=== PATIENT | male | born 1985 | race Caucasian/White ===

== ENCOUNTER 2017-03-29 19:59 | Emergency (ER) | payer BC ==
--- NOTE | 2017-03-29 20:36 | EDM.PDOC ---
ED HPI Trauma - General Chief Complaint: Lower Extremity Injury/Pain Stated Complaint: PAIN LT HAMSTRING Time Seen by Provider: 03/29/17 20:35 Source: Reports: Patient History Limitations: Reports: No limitations - History of Present Illness INITIAL COMMENTS - FREE TEXT/NARRATIVE: HISTORY AND PHYSICAL: [31-year-old male presents with hamstring injury. Patient hit the ball and was running towards first when he heard a loud pop and pain instantly to the back of his left thigh.]his ex- drove him to the emergency room History of Present Illness: [patient has history of hamstring injury to right leg one year ago. multiple tattoos/rings in the earlobes ] Review of Systems: As per history of present illness and below otherwise all systems reviewed and negative. Past medical history: As per history of present illness and as reviewed below otherwise noncontributory. Surgical history: As per history of present illness and as reviewed below otherwise noncontributory. Social history: No reported history of drug or alcohol abuse. Family history: As per history of present illness and as reviewed below otherwise noncontributory. Physical exam:alert and oriented gentleman answering questions appropriate holding ice to the back of his left thigh HEENT: Atraumatic, normocehpalic, pupils reactive, negative for conjunctival pallor or scleral icterus, mucous membranes moist, throat clear, neck supple, nontender, trachea midline. Lungs: Clear to auscultation, breath sounds equal bilaterally, chest non tender. Heart: S1S2, regular, negative for clicks, rubs, or JVD. Abdomen: Soft, nondistended, nontender. Negative for masses or hepatossplenmegaly. Negative for costovertebral tenderness. Pelvis: Stable nontender. with palpation Genitourinary: Deferred. Rectal: Deferred Extremities: Atraumatic, negative for cords or calf pain. Ice pack present to posterior femur Neurovascular unremarkable. Neuro: Awake, alert, oriented. Cranial nerves II through XII unremarkable. Cerebellum unremarkable. Motor and sensory unremarkable throughout. Exam nonfocal. as the patient the x-rays were negative for any fracture or dislocation. Discussed care of his hamstring injury. He did voice understanding of all discharge instructions. No further questions were outstanding. Diagnostics: [x-ray left femur] Therapeutics: [Toradol 60 IM] Impression: [hamstring injury] Plan: [ice Avoid straightening the leg Use a knee scooter for the next month Ibuprofen 800 3 times a day or Aleve 2 tabs twice a day Hydrocodone/APAP 10/325mg one 3 times a day when necessary pain if not driving.] followup with the primary care provider Return if symptoms worsen Definitive disposition and diagnosis as appropriate pending reevaluation and review of above. Occurred When: just prior to arrival Occurred Where: other (playing baseball running to first) Method of Injury: other Severity: severe Pain/Injury Location: Reports: lower extremity, left Consciousness: Reports: no loss of consciousness, remembers incident, remembers coming to hosp Associated Symptoms: Reports: muscle spasms Allergies/ADRs: Allergies No Known Allergies Allergy (Verified 03/29/17 20:12) Home Medications: Ambulatory Orders . [No Known Home Meds] 03/29/17 [Confirmed 03/29/17] Past Medical History - Past Health History Medical/Surgical History: Denies Medical/Surgical History HEENT History: Reports: None Cardiovascular History: Reports: None Respiratory History: Reports: None Gastrointestinal History: Reports: None Genitourinary History: Reports: None Musculoskeletal History: Reports: None Neurological History: Reports: None Psychiatric History: Reports: None Endocrine/Metabolic History: Reports: None Hematologic History: Reports: None Immunologic History: Reports: None Oncologic (Cancer) History: Reports: None Dermatologic History: Reports: None - Infectious Disease History Infectious Disease History: Reports: None - Past Surgical History Head Surgeries/Procedures: Reports: None GI Surgical History: Reports: Other (see below) Other GI Surgeries/Procedures: abdominal cyst removed Social & Family History - Family History Family Medical History: Noncontributory - Tobacco Use Smoking Status *Q: Former Smoker Used Tobacco, but Quit: Yes Month Tobacco Last Used: 2009 - Caffeine Use Caffeine Use: Reports: Coffee Caffeine Use Comment: 1/day - Recreational Drug Use Recreational Drug Use: Yes Drug Use in Last 12 Months: Yes Recreational Drug Type: Reports: Marijuana/Hashish Recreational Drug Use Frequency: Not Used In Over 6 Months Review of Systems - Review of Systems Review Of Systems: ROS reveals no pertinent complaints other than HPI. Trauma Exam - Physical Exam Exam: See Below (see dictation) Course - Vital Signs Last Recorded V/S: Last Vital Signs Temp 36.9 C 03/29/17 20:12 Pulse 90 03/29/17 20:12 Resp 18 03/29/17 20:12 BP 143/75 H 03/29/17 20:12 Pulse Ox 97 03/29/17 20:12 - Orders/Labs/Meds Orders: Active Orders 24 hr Category Date Time Status Femur Min 2V Lt [CR] Stat Exams 03/29/17 20:34 Taken Meds: Medications Discontinued Medications Generic Name Dose Route Start Last Admin Trade Name Ella PRN Reason Stop Dose Admin Hydrocodone Bitart/Acetaminophen 1 tab 03/29/17 21:33 03/29/17 21:40 [place]nell 325-10 Mg PO 03/29/17 21:34 1 tab ONETIME ONE Administration Ketorolac Tromethamine 60 mg 03/29/17 20:39 03/29/17 20:44 Toradol IM 03/29/17 20:40 60 mg ONETIME ONE Administration Departure - Departure Time of Disposition: 21:45 Disposition: Home, Self-Care 01 Condition: good Clinical Impression: Hamstring sprain Forms: ED Department Discharge Additional Instructions: The following information is given to patients seen in the emergency department who are being discharged to home. This information is to outline your options for follow-up care. We provide all patients seen in our emergency department with a follow-up referral. The need for follow-up, as well as the timing and circumstances, are variable depending upon the specifics of your emergency department visit. If you don't have a primary care physician on staff, we will provide you with a referral. We always advise you to contact your personal physician following an emergency department visit to inform them of the circumstance of the visit and for follow-up with them and/or the need for any referrals to a consulting specialist. The emergency department will also refer you to a specialist when appropriate. This referral assures that you have the opportunity for followup care with a specialist. All of these measure are taken in an effort to provide you with optimal care, which includes your followup. Under all circumstances we always encourage you to contact your private physician who remains a resource for coordinating your care. When calling for followup care, please make the office aware that this follow-up is from your recent emergency room visit. If for any reason you are refused follow-up, please contact the [facility] emergency department at and asked to speak to the emergency department charge nurse. - My Orders Last 24 Hours: My Active Orders 03/29/17 20:34 Femur Min 2V Lt [CR] Stat - Assessment/Plan Last 24 Hours: My Active Orders 03/29/17 20:34 Femur Min 2V Lt [CR] Stat
[2017-03-29] MEDS ORDERED: Ketorolac 60 MG/2 ML SDV IM ONE (20:39)
[2017-03-29] MEDS ORDERED: Acetaminophen/HYDROcodone 325-10 MG Tab PO ONE (21:33)
[2017-03-29 21:57] VITALS: BP 127/58
--- NOTE | 2017-03-30 12:37 | CR ---
.EXAM DATE: 03/29/17 PATIENT'S AGE: 31 Patient: ROB SOLIS Facility: [place], [place] Site . Site : 1985 Study: XRay Extremity femur [id number]/[id number] 9:34:22 PM Ordering Physician: Doctor Owusu Final Report: Indication: Pain and posterior legs, unable to straighten leg Technique: Frontal and lateral views left femur Comparison: None Findings: Bones: Alignment is normal. No fractures or bone lesions. Joint spaces: Unremarkable. Soft tissues: Unremarkable. Impression: Negative. Dictated by Adrianne Morgan MD @ Mar 29 2017 9:45PM (Electronic Signature) Report Signed by Proxy. DION
== END 2017-03-29 21:48 | disposition home or self-care (01) ==
LOC: MW.ED 19:59
DX: S73.199A Other sprain of unspecified hip, initial encounter (principal); Z87.891 Personal history of nicotine dependence; W21.09XA Struck by other hit or thrown ball, initial encounter
CPT/HCPCS: 73552; 96372; 99283; A9270; J1885

== ENCOUNTER 2018-02-15 11:29 | Observation (INO) | payer BC ==
[2018-02-15] MEDS ORDERED: Albuterol/Ipratropium 3.0-0.5 MG/3 ML Neb Soln NEB ONE (12:09)
[2018-02-15] MEDS ORDERED: Sodium Chloride 0.9% 1,000 ML IV ONE (12:09)
[2018-02-15] MEDS ORDERED: Sodium Chloride 0.9% 10 ML Syringe FLUSH PRN (12:10)
[2018-02-15] MEDS ORDERED: Sodium Chloride 0.9% 2.5 ML Syringe FLUSH PRN (12:10)
--- NOTE | 2018-02-15 12:12 | EDM.PDOC ---
ED HPI GENERAL MEDICAL PROBLEM - General Chief Complaint: Respiratory Problem Stated Complaint: SOB Time Seen by Provider: 02/15/18 12:06 - History of Present Illness INITIAL COMMENTS - FREE TEXT/NARRATIVE: HISTORY AND PHYSICAL: History of present illness: Patient 32-year-old white male sensory concern shortness of breath he states this is exertionally denies fever chills nausea vomiting he was seen several weeks prior and put on Augmentin and Medrol Dosepak states he had some improvement. He denies history of reactive airway disease asthma he is nonsmoker. Review of systems: As per history of present illness and below otherwise all systems reviewed and negative. Past medical history: As per history of present illness and as reviewed below otherwise noncontributory. Surgical history: As per history of present illness and as reviewed below otherwise noncontributory. Social history: No reported history of drug or alcohol abuse. Family history: As per history of present illness and as reviewed below otherwise noncontributory. Physical exam: HEENT: Atraumatic, normocephalic, pupils reactive, negative for conjunctival pallor or scleral icterus, mucous membranes moist, throat clear, neck supple, nontender, trachea midline. Lungs: Slightly coarse bilateral, breath sounds equal bilaterally, chest nontender. Heart: S1S2, regular, negative for clicks, rubs, or JVD. Abdomen: Soft, nondistended, nontender. Negative for masses or hepatosplenomegaly. Negative for costovertebral tenderness. Pelvis: Stable nontender. Genitourinary: Deferred. Rectal: Deferred. Extremities: Atraumatic, negative for cords or calf pain. Neurovascular unremarkable. Neuro: Awake, alert, oriented. Cranial nerves II through XII unremarkable. Cerebellum unremarkable. Motor and sensory unremarkable throughout. Exam nonfocal. Diagnostics: CBC CMP BNP d-dimer chest x-ray EKG influenza screen Therapeutics: #1 saline bolus albuterol ipratropium nebulizer Impression: #1 dyspnea Definitive disposition and diagnosis as appropriate pending reevaluation and review of above. Chest Pain Score (Numeric/FACES): 8 - Related Data Allergies Allergy/AdvReac Type Severity Reaction Status Date / Time No Known Allergies Allergy Verified 02/15/18 11:43 Home Meds: Home Meds . [No Known Home Meds] 03/29/17 [History] Past Medical History - Past Health History Medical/Surgical History: Denies Medical/Surgical History HEENT History: Reports: None Cardiovascular History: Reports: None Respiratory History: Reports: None Gastrointestinal History: Reports: None Genitourinary History: Reports: None Musculoskeletal History: Reports: None Neurological History: Reports: None Psychiatric History: Reports: None Endocrine/Metabolic History: Reports: None Hematologic History: Reports: None Immunologic History: Reports: None Oncologic (Cancer) History: Reports: None Dermatologic History: Reports: None - Infectious Disease History Infectious Disease History: Reports: Chicken Pox - Past Surgical History Head Surgeries/Procedures: Reports: None GI Surgical History: Reports: Other (See Below) Social & Family History - Family History Family Medical History: Noncontributory - Tobacco Use Smoking Status *Q: Never Smoker Used Tobacco, but Quit: Yes Month/Year Tobacco Last Used: 2009 - Caffeine Use Caffeine Use: Reports: Coffee Caffeine Use Comment: 1/day - Recreational Drug Use Recreational Drug Use: No Drug Use in Last 12 Months: Yes Recreational Drug Type: Reports: Marijuana/Hashish Recreational Drug Use Frequency: Not Used In Over 6 Months ED ROS GENERAL - Review of Systems Review Of Systems: ROS reveals no pertinent complaints other than HPI. ED EXAM, GENERAL - Physical Exam Exam: See Below (See dictation) Course - Vital Signs Last Recorded V/S: Last Vital Signs Temp 36.6 C 02/15/18 11:40 Pulse 81 02/15/18 13:48 Resp 18 02/15/18 13:48 BP 129/57 L 02/15/18 13:48 Pulse Ox 93 L 02/15/18 13:48 - Orders/Labs/Meds Orders: Active Orders 24 hr Category Date Time Status EKG Documentation Completion [RC] STAT Care 02/15/18 12:09 Active RT Aerosol Therapy [RC] ASDIRECTED Care 02/15/18 12:10 Active CULTURE BLOOD [BC] Stat Lab 02/15/18 14:00 Ordered CULTURE BLOOD [BC] Stat Lab 02/15/18 14:00 Ordered INFLUENZA A+B AG SCREEN [RM] Stat Lab 02/15/18 12:30 Ordered Azithromycin [Zithromax] 500 mg Med 02/15/18 13:59 Active Sodium Chloride 0.9% [Normal Saline] 250 ml IV ONETIME Sodium Chloride 0.9% [Saline Flush] Med 02/15/18 12:10 Active 10 ml FLUSH ASDIRECTED PRN Sodium Chloride 0.9% [Saline Flush] Med 02/15/18 12:10 Active 2.5 ml FLUSH ASDIRECTED PRN cefTRIAXone [Rocephin] 1,000 mg Med 02/15/18 13:59 Active Sodium Chloride 0.9% [Normal Saline] 50 ml IV ONETIME Blood Culture x2 Reflex Set [OM.PC] Stat Oth 02/15/18 14:00 Ordered Saline Lock Insert [OM.PC] Stat Oth 02/15/18 12:08 Ordered Medication Orders Ceftriaxone Sodium 1,000 mg/ (Sodium Chloride) 50 mls @ 200 mls/hr IV ONETIME ONE Stop: 02/15/18 14:13 Azithromycin 500 mg/ Sodium (Chloride) 250 mls @ 250 mls/hr IV ONETIME ONE Stop: 02/15/18 14:58 Sodium Chloride (Saline Flush) 10 ml FLUSH ASDIRECTED PRN PRN Reason: Keep Vein Open Sodium Chloride (Saline Flush) 2.5 ml FLUSH ASDIRECTED PRN PRN Reason: Keep Vein Open Labs: Laboratory Tests 02/15/18 02/15/18 02/15/18 Range/Units 12:20 12:20 12:20 WBC 16.89 H (4.0-11.0) K/uL RBC 5.46 (4.50-5.90) M/uL Hgb 17.2 H (13.0-17.0) g/dL Hct 49.3 (38.0-50.0) % MCV 90.3 (80.0-98.0) fL MCH 31.5 (27.0-32.0) pg MCHC 34.9 (31.0-37.0) g/dL RDW Std Deviation 49.0 (28.0-62.0) fl RDW Coeff of Katerine 15 (11.0-15.0) % Plt Count 375 (150-400) K/uL MPV 10.90 (7.40-12.00) fL Neut % (Auto) 72.2 (48.0-80.0) % Lymph % (Auto) 19.8 (16.0-40.0) % [place] % (Auto) 7.5 (0.0-15.0) % Eos % (Auto) 0.2 (0.0-7.0) % Baso % (Auto) 0.3 (0.0-1.5) % Neut # (Auto) 12.2 H (1.4-5.7) K/uL Lymph # (Auto) 3.4 H (0.6-2.4) K/uL [place] # (Auto) 1.3 H (0.0-0.8) K/uL Eos # (Auto) 0.0 (0.0-0.7) K/uL Baso # (Auto) 0.1 (0.0-0.1) K/uL Nucleated RBC % 0.6 /100WBC Nucleated RBCs # 0 K/uL D-Dimer, Quantitative 0.64 H (0.0-0.52) mg/LFEU ABG pH (7.35-7.45) ABG pCO2 (35-45) mmHG ABG pO2 (75-100) mmHG ABG HCO3 (22-26) mEq/L ABG Total CO2 ABG Base Excess (-2.0-2.0) Sodium 137 (136-148) mmol/L Potassium 4.8 (3.5-5.1) mmol/L Chloride 102 (98-107) mmol/L Carbon Dioxide 26.2 (21.0-32.0) mmol/L BUN 18 (7.0-18.0) mg/dL Creatinine 1.5 H (0.8-1.3) mg/dL Est Cr Clr Drug Dosing 74.35 mL/min Estimated GFR (MDRD) 55.0 ml/min Glucose 92 (74-106) mg/dL Calcium 8.9 (8.5-10.1) mg/dL Total Bilirubin 0.6 (0.2-1.0) mg/dL AST 47 H (15-37) IU/L ALT 148 H (14-63) IU/L Alkaline Phosphatase 46 (46-116) U/L B-Natriuretic Peptide (<100) PG/ML Total Protein 7.6 (6.4-8.2) g/dL Albumin 3.0 L (3.4-5.0) g/dL Globulin 4.6 H (2.0-3.5) g/dL Albumin/Globulin Ratio 0.7 L (1.3-2.8) 02/15/18 02/15/18 Range/Units 12:20 12:29 WBC (4.0-11.0) K/uL RBC (4.50-5.90) M/uL Hgb (13.0-17.0) g/dL Hct (38.0-50.0) % MCV (80.0-98.0) fL MCH (27.0-32.0) pg MCHC (31.0-37.0) g/dL RDW Std Deviation (28.0-62.0) fl RDW Coeff of Katerine (11.0-15.0) % Plt Count (150-400) K/uL MPV (7.40-12.00) fL Neut % (Auto) (48.0-80.0) % Lymph % (Auto) (16.0-40.0) % [place] % (Auto) (0.0-15.0) % Eos % (Auto) (0.0-7.0) % Baso % (Auto) (0.0-1.5) % Neut # (Auto) (1.4-5.7) K/uL Lymph # (Auto) (0.6-2.4) K/uL [place] # (Auto) (0.0-0.8) K/uL Eos # (Auto) (0.0-0.7) K/uL Baso # (Auto) (0.0-0.1) K/uL Nucleated RBC % /100WBC Nucleated RBCs # K/uL D-Dimer, Quantitative (0.0-0.52) mg/LFEU ABG pH 7.470 H (7.35-7.45) ABG pCO2 29 L (35-45) mmHG ABG pO2 63 L (75-100) mmHG ABG HCO3 21 L (22-26) mEq/L ABG Total CO2 18.0 ABG Base Excess -1.0 (-2.0-2.0) Sodium (136-148) mmol/L Potassium (3.5-5.1) mmol/L Chloride (98-107) mmol/L Carbon Dioxide (21.0-32.0) mmol/L BUN (7.0-18.0) mg/dL Creatinine (0.8-1.3) mg/dL Est Cr Clr Drug Dosing mL/min Estimated GFR (MDRD) ml/min Glucose (74-106) mg/dL Calcium (8.5-10.1) mg/dL Total Bilirubin (0.2-1.0) mg/dL AST (15-37) IU/L ALT (14-63) IU/L Alkaline Phosphatase (46-116) U/L B-Natriuretic Peptide 21 (<100) PG/ML Total Protein (6.4-8.2) g/dL Albumin (3.4-5.0) g/dL Globulin (2.0-3.5) g/dL Albumin/Globulin Ratio (1.3-2.8) Meds: Medications Generic Name Dose Route Start Last Admin Trade Name Freq PRN Reason Stop Dose Admin Ceftriaxone Sodium 1,000 mg/ 50 mls @ 200 mls/hr 02/15/18 13:59 Sodium Chloride IV 02/15/18 14:13 ONETIME ONE Azithromycin 500 mg/ Sodium 250 mls @ 250 mls/hr 02/15/18 13:59 Chloride IV 02/15/18 14:58 ONETIME ONE Sodium Chloride 10 ml 02/15/18 12:10 Saline Flush FLUSH ASDIRECTED PRN Keep Vein Open Sodium Chloride 2.5 ml 02/15/18 12:10 Saline Flush FLUSH ASDIRECTED PRN Keep Vein Open Discontinued Medications Generic Name Dose Route Start Last Admin Trade Name Freq PRN Reason Stop Dose Admin Albuterol/Ipratropium 3 ml 02/15/18 12:09 02/15/18 12:18 Duoneb 3.0-0.5 Mg/3 Ml NEB 02/15/18 12:10 3 ml ONETIME ONE Administration Sodium Chloride 1,000 mls @ 999 mls/hr 02/15/18 12:09 02/15/18 12:23 Normal Saline IV 02/15/18 13:09 999 mls/hr STAT ONE Administration Departure - Departure Time of Disposition: 14:01 Disposition: Refer to Observation Condition: Good Clinical Impression: Pneumonia, Hypoxemia - Discharge Information Referrals: Kelby Del Valle MD [Primary Care Provider] - Forms: ED Department Discharge - My Orders Last 24 Hours: My Active Orders 02/15/18 12:08 Saline Lock Insert [OM.PC] Stat 02/15/18 12:09 EKG Documentation Completion [RC] STAT 02/15/18 12:10 RT Aerosol Therapy [RC] ASDIRECTED Sodium Chloride 0.9% [Saline Flush] 10 ml FLUSH ASDIRECTED PRN Sodium Chloride 0.9% [Saline Flush] 2.5 ml FLUSH ASDIRECTED PRN 02/15/18 12:30 INFLUENZA A+B AG SCREEN [RM] Stat 02/15/18 13:59 Azithromycin [Zithromax] 500 mg Sodium Chloride 0.9% [Normal Saline] 250 ml IV ONETIME cefTRIAXone [Rocephin] 1,000 mg Sodium Chloride 0.9% [Normal Saline] 50 ml IV ONETIME 02/15/18 14:00 CULTURE BLOOD [BC] Stat CULTURE BLOOD [BC] Stat Blood Culture x2 Reflex Set [OM.PC] Stat - Assessment/Plan Last 24 Hours: My Active Orders 02/15/18 12:08 Saline Lock Insert [OM.PC] Stat 02/15/18 12:09 EKG Documentation Completion [RC] STAT 02/15/18 12:10 RT Aerosol Therapy [RC] ASDIRECTED Sodium Chloride 0.9% [Saline Flush] 10 ml FLUSH ASDIRECTED PRN Sodium Chloride 0.9% [Saline Flush] 2.5 ml FLUSH ASDIRECTED PRN 02/15/18 12:30 INFLUENZA A+B AG SCREEN [RM] Stat 02/15/18 13:59 Azithromycin [Zithromax] 500 mg Sodium Chloride 0.9% [Normal Saline] 250 ml IV ONETIME cefTRIAXone [Rocephin] 1,000 mg Sodium Chloride 0.9% [Normal Saline] 50 ml IV ONETIME 02/15/18 14:00 CULTURE BLOOD [BC] Stat CULTURE BLOOD [BC] Stat Blood Culture x2 Reflex Set [OM.PC] Stat
--- NOTE | 2018-02-15 13:55 | CR ---
EXAMINATION: Two-view chest (PA and Lateral views). HISTORY: Shortness of breath. FINDINGS: The trachea is midline. The cardiomediastinal silhouette is within normal limits. Infiltrate noted wi thin the lung bases, left greater than right. No pleural effusion or pneumothorax. Osseous structures appear unremarkable. IMPRESSION: Bibasilar, left greater than right infiltrate, likely pneumonia.
[2018-02-15] MEDS ORDERED: cefTRIAXone 1,000 MG in Sodium Chloride 0.9% 50 ML IV ONE (13:59)
[2018-02-15] MEDS ORDERED: Azithromycin 500 MG in Sodium Chloride 0.9% 250 ML IV ONE ×2 (13:59→15:00)
[2018-02-15] MEDS ORDERED: Ondansetron 4 MG/2 ML SDV IVPUSH PRN (14:35)
[2018-02-15] MEDS ORDERED: Albuterol 0.083% 2.5 MG/3 ML Neb Soln NEB PRN (14:35)
[2018-02-15] MEDS ORDERED: Albuterol/Ipratropium 3.0-0.5 MG/3 ML Neb Soln NEB PRN (14:35)
[2018-02-15] MEDS ORDERED: Acetaminophen 325 MG Tab PO PRN (14:35)
--- NOTE | 2018-02-15 14:47 | PCM.HP ---
H&P History of Present Illness - General Date of Service: 02/15/18 Admit Problem/Dx: Admission Diagnosis/Problem Admission Diagnosis/Problem Pneumonia Source of Information: Patient History Limitations: Reports: No Limitations - History of Present Illness Initial Comments - Free Text/Narative: This 32 year old male with no pmh presented to the ED today with worsening dyspnea and fever and chills. He reports he initially was sick with a cold and had some ear pain, saw Dr Del Valle a week ago and was placed on Augmentin and a Medrol dose pack. He improved slightly, but the shortness of breath progressively worsened to the point he was extremely short of breath just taking the garbage out. He reports having hot flashes and chills, temp measured at 100 F at home nothing higher. He has been coughing up green, brown and yellow phlegm. He has had a very poor appetite and drinking very little compared to his normal water intake. No chest pain or palpitations. No abdominal pain or urinary symptoms. He reports some diarrhea before starting Augmentin even, 5-6 times daily. No black or bloody BMs. No joint pain. No headache or blurred vision, no more body aches, he had them last week and no joint or neck pain. In the ED leukocytosis noted at 16,890, hgb 17.2, D dimer elevated slightly at 0.64, ABG, pH 7.470 PCO2 29, PO2 63. BUN 18, Cr 1.5 AST 47, and ALT 148. CXR revealed bilateral L greater than R infiltrates. Influenza negative. He was treated with Rocephin, Azithromycin, Duonebs and 1 L NS bolus. VS stable, 94% on RA but noted dyspnea. PCP, Dr Del Valle. Chest Pain Score (Numeric/FACES): 2 - Related Data Allergies/Adverse Reactions: Allergies Allergy/AdvReac Type Severity Reaction Status Date / Time No Known Allergies Allergy Verified 02/15/18 11:43 Home Medications: Home Meds . [No Known Home Meds] 03/29/17 [History] Past Medical History - Past Health History Medical/Surgical History: Denies Medical/Surgical History HEENT History: Reports: None Cardiovascular History: Reports: None. Denies: CAD, High Cholesterol, Hypertension, CT Respiratory History: Reports: None. Denies: Asthma, COPD, Sleep Apnea Gastrointestinal History: Reports: None. Denies: GERD, GI Bleed Genitourinary History: Reports: None. Denies: Acute Renal Failure, Chronic Renal Insuffiency Musculoskeletal History: Reports: None. Denies: Fracture Neurological History: Reports: None. Denies: CVA, Migraines, TIA Psychiatric History: Reports: None Endocrine/Metabolic History: Reports: None. Denies: Diabetes, Type II, Hypothyroidism Hematologic History: Reports: None Immunologic History: Reports: None Oncologic (Cancer) History: Reports: None Dermatologic History: Reports: None - Infectious Disease History Infectious Disease History: Reports: Chicken Pox - Past Surgical History Head Surgeries/Procedures: Reports: None GI Surgical History: Reports: Other (See Below) Social & Family History - Family History Family Medical History: Noncontributory - Tobacco Use Smoking Status *Q: Former Smoker Used Tobacco, but Quit: Yes Month/Year Tobacco Last Used: 2009 - Caffeine Use Caffeine Use: Reports: Coffee Caffeine Use Comment: 1/day - Alcohol Use Alcohol Use History: No - Recreational Drug Use Recreational Drug Use: No Drug Use in Last 12 Months: Yes Recreational Drug Type: Reports: Marijuana/Hashish Recreational Drug Use Frequency: Not Used In Over 6 Months - Living Situation & Occupation Living situation: Reports: , with Family 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 Denies: Headaches, Hearing Changes, Sinus Congestion, Sore Throat, Vertigo, Visual Changes Pulmonary: Reports: Shortness of Breath, Cough, Sputum. Denies: Hemoptysis Cardiovascular: Reports: No Symptoms. Denies: Chest Pain, Palpitations, Edema, Lightheadedness Gastrointestinal: Reports: Diarrhea. Denies: Abdominal Pain, Black Stool, Bloody Stool, Nausea, Vomiting Genitourinary: Reports: No Symptoms. Denies: Dysuria, Frequency, Burning, Pain Musculoskeletal: Reports: No Symptoms Skin: Reports: No Symptoms Neurological: Reports: No Symptoms Hematologic/Lymphatic: Reports: No Symptoms Immunologic: Reports: No Symptoms Exam - Exam Exam: See Below - Vital Signs Vital Signs: Last Vital Signs Temp 97.9 F 02/15/18 11:40 Pulse 85 02/15/18 14:36 Resp 16 02/15/18 14:36 BP 115/51 L 02/15/18 14:36 Pulse Ox 94 L 02/15/18 14:36 Weight: 105 kg - Exam Quality Assessment: DVT Prophylaxis General: Alert, Oriented, Cooperative HEENT: Conjunctiva Clear, Mucosa Moist & [place], Nares Patent, Posterior Pharynx Clear, Pupils Reactive Neck: Supple, Trachea Midline, 2 Lungs: Crackles (bilateral bases). No: Normal Respiratory Effort (dyspneic with speech and exertion) Cardiovascular: Regular Rate, Regular Rhythm Back Exam: Normal Inspection, Full Range of Motion, NT Extremities: Normal Inspection, Normal Range of Motion, Non-Tender, No Pedal Edema, Normal Capillary Refill Skin: Warm, Dry, Intact Neuro Extensive - Mental Status: Alert, Oriented x3, Normal Mood/Affect, Normal Cognition Neuro Extensive - Motor, Sensory, Reflexes: CN II-XII Intact Psychiatric: Alert, Normal Affect, Normal Mood - Patient Data Lab Results Last 24 hrs: Laboratory Results - last 24 hr 02/15/18 02/15/18 02/15/18 Range/Units 12:20 12:20 12:20 WBC 16.89 H (4.0-11.0) K/uL RBC 5.46 (4.50-5.90) M/uL Hgb 17.2 H (13.0-17.0) g/dL Hct 49.3 (38.0-50.0) % MCV 90.3 (80.0-98.0) fL MCH 31.5 (27.0-32.0) pg MCHC 34.9 (31.0-37.0) g/dL RDW Std Deviation 49.0 (28.0-62.0) fl RDW Coeff of Katerine 15 (11.0-15.0) % Plt Count 375 (150-400) K/uL MPV 10.90 (7.40-12.00) fL Neut % (Auto) 72.2 (48.0-80.0) % Lymph % (Auto) 19.8 (16.0-40.0) % [place] % (Auto) 7.5 (0.0-15.0) % Eos % (Auto) 0.2 (0.0-7.0) % Baso % (Auto) 0.3 (0.0-1.5) % Neut # (Auto) 12.2 H (1.4-5.7) K/uL Lymph # (Auto) 3.4 H (0.6-2.4) K/uL [place] # (Auto) 1.3 H (0.0-0.8) K/uL Eos # (Auto) 0.0 (0.0-0.7) K/uL Baso # (Auto) 0.1 (0.0-0.1) K/uL Nucleated RBC % 0.6 /100WBC Nucleated RBCs # 0 K/uL D-Dimer, Quantitative 0.64 H (0.0-0.52) mg/LFEU ABG pH (7.35-7.45) ABG pCO2 (35-45) mmHG ABG pO2 (75-100) mmHG ABG HCO3 (22-26) mEq/L ABG Total CO2 ABG Base Excess (-2.0-2.0) Sodium 137 (136-148) mmol/L Potassium 4.8 (3.5-5.1) mmol/L Chloride 102 (98-107) mmol/L Carbon Dioxide 26.2 (21.0-32.0) mmol/L BUN 18 (7.0-18.0) mg/dL Creatinine 1.5 H (0.8-1.3) mg/dL Est Cr Clr Drug Dosing 74.35 mL/min Estimated GFR (MDRD) 55.0 ml/min Glucose 92 (74-106) mg/dL Calcium 8.9 (8.5-10.1) mg/dL Total Bilirubin 0.6 (0.2-1.0) mg/dL AST 47 H (15-37) IU/L ALT 148 H (14-63) IU/L Alkaline Phosphatase 46 (46-116) U/L B-Natriuretic Peptide (<100) PG/ML Total Protein 7.6 (6.4-8.2) g/dL Albumin 3.0 L (3.4-5.0) g/dL Globulin 4.6 H (2.0-3.5) g/dL Albumin/Globulin Ratio 0.7 L (1.3-2.8) 02/15/18 02/15/18 Range/Units 12:20 12:29 WBC (4.0-11.0) K/uL RBC (4.50-5.90) M/uL Hgb (13.0-17.0) g/dL Hct (38.0-50.0) % MCV (80.0-98.0) fL MCH (27.0-32.0) pg MCHC (31.0-37.0) g/dL RDW Std Deviation (28.0-62.0) fl RDW Coeff of Katerine (11.0-15.0) % Plt Count (150-400) K/uL MPV (7.40-12.00) fL Neut % (Auto) (48.0-80.0) % Lymph % (Auto) (16.0-40.0) % [place] % (Auto) (0.0-15.0) % Eos % (Auto) (0.0-7.0) % Baso % (Auto) (0.0-1.5) % Neut # (Auto) (1.4-5.7) K/uL Lymph # (Auto) (0.6-2.4) K/uL [place] # (Auto) (0.0-0.8) K/uL Eos # (Auto) (0.0-0.7) K/uL Baso # (Auto) (0.0-0.1) K/uL Nucleated RBC % /100WBC Nucleated RBCs # K/uL D-Dimer, Quantitative (0.0-0.52) mg/LFEU ABG pH 7.470 H (7.35-7.45) ABG pCO2 29 L (35-45) mmHG ABG pO2 63 L (75-100) mmHG ABG HCO3 21 L (22-26) mEq/L ABG Total CO2 18.0 ABG Base Excess -1.0 (-2.0-2.0) Sodium (136-148) mmol/L Potassium (3.5-5.1) mmol/L Chloride (98-107) mmol/L Carbon Dioxide (21.0-32.0) mmol/L BUN (7.0-18.0) mg/dL Creatinine (0.8-1.3) mg/dL Est Cr Clr Drug Dosing mL/min Estimated GFR (MDRD) ml/min Glucose (74-106) mg/dL Calcium (8.5-10.1) mg/dL Total Bilirubin (0.2-1.0) mg/dL AST (15-37) IU/L ALT (14-63) IU/L Alkaline Phosphatase (46-116) U/L B-Natriuretic Peptide 21 (<100) PG/ML Total Protein (6.4-8.2) g/dL Albumin (3.4-5.0) g/dL Globulin (2.0-3.5) g/dL Albumin/Globulin Ratio (1.3-2.8) Result Diagrams: 02/15/18 12:20 02/15/18 12:20 Bobby Results Last 24 hrs: Microbiology 02/15/18 12:30 Influenza Type A Antigen Screen - Final Nasopharyngeal Swab NEGATIVE INFLUENZA A VIRUS AG Influenza Type B Antigen Screen - Final NEGATIVE INFLUENZA B VIRUS AG *Q Meaningful Use (ADM) - VTE Risk Assess *Q Each Risk Factor Represents 1 Point: None Total Score 1 Point Risk Factors: 0 Each Risk Factor Represents 2 Points: None Total Score 2 Point Risk Factors: 0 Each Risk Factor Represents 3 Points: None Total Score 3 Point Risk Factors: 0 Each Risk Factor Represents 5 Points: None Total Score 5 Point Risk Factors: 0 Venous Thromboembolism Risk Factor Score *Q: 0 - Problem List (1) Hypoxemia SNOMED Code(s): 752041929 ICD Code: R09.02 - HYPOXEMIA Status: Acute Current Visit: Yes (2) Pneumonia SNOMED Code(s): 288246743 ICD Code: J18.9 - PNEUMONIA, UNSPECIFIED ORGANISM Status: Acute Current Visit: Yes Qualifiers: Pneumonia type: due to unspecified organism Laterality: bilateral Lung location: lower lobe of lung Qualified Code(s): J18.1 - Lobar pneumonia, unspecified organism (3) Dehydration SNOMED Code(s): 26993502 ICD Code: E86.0 - DEHYDRATION Status: Acute Current Visit: Yes (4) RHIANNA (acute kidney injury) SNOMED Code(s): 25796950 ICD Code: N17.9 - ACUTE KIDNEY FAILURE, UNSPECIFIED Status: Acute Current Visit: Yes (5) Diarrhea SNOMED Code(s): 16186982 ICD Code: R19.7 - DIARRHEA, UNSPECIFIED Status: Acute Current Visit: Yes Qualifiers: Diarrhea type: unspecified type Qualified Code(s): R19.7 - Diarrhea, unspecified Problem List Initiated/Reviewed/Updated: Yes Orders Last 24hrs: Active Orders 24 hr Category Date Time Status Patient Status [ADT] Stat ADT 02/15/18 14:03 Active EKG Documentation Completion [RC] STAT Care 02/15/18 12:09 Active Intake and Output [RC] QSHIFT Care 02/15/18 14:35 Ordered Oxygen Therapy [RC] PRN Care 02/15/18 14:35 Ordered RT Aerosol Therapy [RC] ASDIRECTED Care 02/15/18 12:10 Active RT Aerosol Therapy [RC] ASDIRECTED Care 02/15/18 14:37 Ordered Up ad Tosha [RC] ASDIRECTED Care 02/15/18 14:35 Ordered VTE/DVT Education [RC] PER UNIT ROUTINE Care 02/15/18 14:35 Ordered Vital Signs [RC] Q4H Care 02/15/18 14:35 Ordered Regular Diet [DIET] Diet 02/15/18 Dinner Ordered CBC WITH AUTO DIFF [HEME] AM Lab 02/16/18 05:11 Ordered COMPREHENSIVE METABOLIC PN,CMP [CHEM] AM Lab 02/16/18 05:11 Ordered CULTURE BLOOD [BC] Stat Lab 02/15/18 14:10 Received CULTURE BLOOD [BC] Stat Lab 02/15/18 14:18 Received CULTURE SPUTUM + SMEAR [RM] Stat Lab 02/15/18 14:35 Ordered INFLUENZA A+B AG SCREEN [RM] Stat Lab 02/15/18 12:30 Ordered Acetaminophen [Tylenol] Med 02/15/18 14:35 Ordered 650 mg PO Q4H PRN Albuterol [Proventil Neb Soln] Med 02/15/18 14:35 Ordered 2.5 mg NEB Q2H PRN Albuterol/Ipratropium [DuoNeb 3.0-0.5 MG/3 ML] Med 02/15/18 14:35 Ordered 3 ml NEB Q4HRRT PRN Azithromycin [Zithromax] Med 02/16/18 09:00 Ordered 500 mg PO Q24H Azithromycin [Zithromax] 500 mg Med 02/15/18 13:59 Active Sodium Chloride 0.9% [Normal Saline] 250 ml IV ONETIME Ondansetron [Zofran] Med 02/15/18 14:35 Ordered 4 mg IVPUSH Q4H PRN Sodium Chloride 0.9% @ 125 MLS/HR (1000ml) Med 02/15/18 14:45 Ordered Sodium Chloride 0.9% [Normal Saline] 1,000 ml IV ASDIRECTED Sodium Chloride 0.9% [Saline Flush] Med 02/15/18 12:10 Active 10 ml FLUSH ASDIRECTED PRN Sodium Chloride 0.9% [Saline Flush] Med 02/15/18 12:10 Active 2.5 ml FLUSH ASDIRECTED PRN cefTRIAXone [Rocephin in Dextrose,Iso-Osm 1 GM/50 ML] 1 Med 02/16/18 14:45 Ordered gm Premix Bag 1 bag IV Q24H Blood Culture x2 Reflex Set [OM.PC] Stat Oth 02/15/18 14:00 Ordered Saline Lock Insert [OM.PC] Stat Oth 02/15/18 12:08 Ordered Sequential Compression Device [OM.PC] Per Unit Routine Oth 02/15/18 14:35 Ordered Resuscitation Status Routine Resus Stat 02/15/18 14:35 Ordered Medication Orders Acetaminophen (Tylenol) 650 mg PO Q4H PRN PRN Reason: Pain (mild 1-3) Albuterol (Proventil Neb Soln) 2.5 mg NEB Q2H PRN PRN Reason: Shortness Of Breath/wheezing Albuterol/Ipratropium (Duoneb 3.0-0.5 Mg/3 Ml) 3 ml NEB Q4HRRT PRN PRN Reason: Shortness Of Breath/wheezing Azithromycin (Zithromax) 500 mg PO Q24H GENO Azithromycin 500 mg/ Sodium (Chloride) 250 mls @ 250 mls/hr IV ONETIME ONE Stop: 02/15/18 14:58 Ceftriaxone Sodium/Dextrose 1 (gm/ Premix) 50 mls @ 100 mls/hr IV Q24H GENO Sodium Chloride (Normal Saline) 1,000 mls @ 125 mls/hr IV ASDIRECTED GENO Ondansetron HCl (Zofran) 4 mg IVPUSH Q4H PRN PRN Reason: Nausea Sodium Chloride (Saline Flush) 10 ml FLUSH ASDIRECTED PRN PRN Reason: Keep Vein Open Sodium Chloride (Saline Flush) 2.5 ml FLUSH ASDIRECTED PRN PRN Reason: Keep Vein Open Assessment/Plan Comment:: This 32 year old male admitted with community acquired pneumonia and hypoxemia 1. CAP: Hypoxemia noted on ABG. Will treat with Rocephin and Azithromycin. BC pending. Will obtain sputum culture as well. Continue IVFs due to RHIANNA for now. D dimer slightly elevated, but Well's score is 0, giving him a low probability of PE. Will hold off on CT angio for now. Continue to monitor. 2 RHIANNA: Likely secondary to dehydration and pneumonia. Continue IVFs for now. 3. Diarrhea: Obtain stool studies. Consider Imodium if stool studies negative. VTE prophylaxis: Ambulation and SCDs Dispo: 1-2 days pending improvement.
[2018-02-15] MEDS: Sodium Chloride 0.9% 1,000 ML IV SCH (14:59)
[2018-02-16] MEDS: Sodium Chloride 0.9% 1,000 ML IV SCH (00:06)
[2018-02-16 06:22] LABS: CHLORIDE,CL 106 mmol/L (98-107); SODIUM,NA 139 mmol/L (136-148)
--- NOTE | 2018-02-16 09:32 | PCM.PN ---
- General Info Date of Service: 02/16/18 Admission Dx/Problem (Free Text): Admission Diagnosis/Problem Admission Diagnosis/Problem Pneumonia Subjective Update: Continues to be short of breath, slight improvement overnight. Cough is less productive, but continues to have cough. At times he feels he can't get breath in. No chest pain no abdominal pain. Eating and drinking better. Functional Status: Reports: Tolerating Diet, Ambulating, Urinating - Review of Systems General: Reports: Fatigue, Malaise. Denies: Fever HEENT: Reports: No Symptoms. Denies: Headaches, Sore Throat, Visual Changes Pulmonary: Reports: Shortness of Breath, Cough. Denies: Hemoptysis, Wheezing Cardiovascular: Reports: No Symptoms. Denies: Chest Pain, Palpitations, Edema Gastrointestinal: Reports: No Symptoms. Denies: Abdominal Pain, Nausea, Vomiting Genitourinary: Reports: No Symptoms. Denies: Dysuria, Frequency, Burning Musculoskeletal: Reports: No Symptoms Neurological: Reports: No Symptoms Psychiatric: Reports: No Symptoms - Patient Data Vitals - Most Recent: Last Vital Signs Temp 97.7 F 02/16/18 08:00 Pulse 57 L 02/16/18 08:00 Resp 20 02/16/18 08:00 BP 123/54 L 02/16/18 08:00 Pulse Ox 95 02/16/18 08:00 Weight - Most Recent: 105 kg I&O - Last 24 Hours: Intake & Output 02/15/18 02/16/18 02/16/18 22:59 06:59 14:59 Intake Total 525 1170 Output Total 0 600 Balance 525 570 Lab Results Last 24 Hours: Laboratory Results - last 24 hr 02/15/18 02/15/18 02/15/18 Range/Units 12:20 12:20 12:20 WBC 16.89 H (4.0-11.0) K/uL RBC 5.46 (4.50-5.90) M/uL Hgb 17.2 H (13.0-17.0) g/dL Hct 49.3 (38.0-50.0) % MCV 90.3 (80.0-98.0) fL MCH 31.5 (27.0-32.0) pg MCHC 34.9 (31.0-37.0) g/dL RDW Std Deviation 49.0 (28.0-62.0) fl RDW Coeff of Katerine 15 (11.0-15.0) % Plt Count 375 (150-400) K/uL MPV 10.90 (7.40-12.00) fL Neut % (Auto) 72.2 (48.0-80.0) % Lymph % (Auto) 19.8 (16.0-40.0) % Labette % (Auto) 7.5 (0.0-15.0) % Eos % (Auto) 0.2 (0.0-7.0) % Baso % (Auto) 0.3 (0.0-1.5) % Neut # (Auto) 12.2 H (1.4-5.7) K/uL Lymph # (Auto) 3.4 H (0.6-2.4) K/uL Labette # (Auto) 1.3 H (0.0-0.8) K/uL Eos # (Auto) 0.0 (0.0-0.7) K/uL Baso # (Auto) 0.1 (0.0-0.1) K/uL Add Manual Diff Neutrophils % (Manual) (48.0-80.0) % Band Neutrophils % % Lymphocytes % (Manual) (16.0-40.0) % Monocytes % (Manual) (0.0-15.0) % Nucleated RBC % 0.6 /100WBC Absolute Seg Neuts (1.4-5.7) Band Neutrophils # Lymphocytes # (Manual) (0.6-2.4) Monocytes # (Manual) (0.0-0.8) Nucleated RBCs # 0 K/uL D-Dimer, Quantitative 0.64 H (0.0-0.52) mg/LFEU ABG pH (7.35-7.45) ABG pCO2 (35-45) mmHG ABG pO2 (75-100) mmHG ABG HCO3 (22-26) mEq/L ABG Total CO2 ABG Base Excess (-2.0-2.0) Sodium 137 (136-148) mmol/L Potassium 4.8 (3.5-5.1) mmol/L Chloride 102 (98-107) mmol/L Carbon Dioxide 26.2 (21.0-32.0) mmol/L BUN 18 (7.0-18.0) mg/dL Creatinine 1.5 H (0.8-1.3) mg/dL Est Cr Clr Drug Dosing 74.35 mL/min Estimated GFR (MDRD) 55.0 ml/min Glucose 92 (74-106) mg/dL Calcium 8.9 (8.5-10.1) mg/dL Total Bilirubin 0.6 (0.2-1.0) mg/dL AST 47 H (15-37) IU/L ALT 148 H (14-63) IU/L Alkaline Phosphatase 46 (46-116) U/L B-Natriuretic Peptide (<100) PG/ML Total Protein 7.6 (6.4-8.2) g/dL Albumin 3.0 L (3.4-5.0) g/dL Globulin 4.6 H (2.0-3.5) g/dL Albumin/Globulin Ratio 0.7 L (1.3-2.8) 02/15/18 02/15/18 02/16/18 Range/Units 12:20 12:29 05:45 WBC 15.21 H (4.0-11.0) K/uL RBC 5.05 (4.50-5.90) M/uL Hgb 15.7 (13.0-17.0) g/dL Hct 45.5 (38.0-50.0) % MCV 90.1 (80.0-98.0) fL MCH 31.1 (27.0-32.0) pg MCHC 34.5 (31.0-37.0) g/dL RDW Std Deviation 48.3 (28.0-62.0) fl RDW Coeff of Katerine 15 (11.0-15.0) % Plt Count 352 (150-400) K/uL MPV 10.70 (7.40-12.00) fL Neut % (Auto) (48.0-80.0) % Lymph % (Auto) (16.0-40.0) % Labette % (Auto) (0.0-15.0) % Eos % (Auto) (0.0-7.0) % Baso % (Auto) (0.0-1.5) % Neut # (Auto) (1.4-5.7) K/uL Lymph # (Auto) (0.6-2.4) K/uL Labette # (Auto) (0.0-0.8) K/uL Eos # (Auto) (0.0-0.7) K/uL Baso # (Auto) (0.0-0.1) K/uL Add Manual Diff YES Neutrophils % (Manual) 68 (48.0-80.0) % Band Neutrophils % 2 % Lymphocytes % (Manual) 22 (16.0-40.0) % Monocytes % (Manual) 8 (0.0-15.0) % Nucleated RBC % 0.0 /100WBC Absolute Seg Neuts 10.3 H (1.4-5.7) Band Neutrophils # 0.3 Lymphocytes # (Manual) 3.3 H (0.6-2.4) Monocytes # (Manual) 1.2 H (0.0-0.8) Nucleated RBCs # 0 K/uL D-Dimer, Quantitative (0.0-0.52) mg/LFEU ABG pH 7.470 H (7.35-7.45) ABG pCO2 29 L (35-45) mmHG ABG pO2 63 L (75-100) mmHG ABG HCO3 21 L (22-26) mEq/L ABG Total CO2 18.0 ABG Base Excess -1.0 (-2.0-2.0) Sodium (136-148) mmol/L Potassium (3.5-5.1) mmol/L Chloride (98-107) mmol/L Carbon Dioxide (21.0-32.0) mmol/L BUN (7.0-18.0) mg/dL Creatinine (0.8-1.3) mg/dL Est Cr Clr Drug Dosing mL/min Estimated GFR (MDRD) ml/min Glucose (74-106) mg/dL Calcium (8.5-10.1) mg/dL Total Bilirubin (0.2-1.0) mg/dL AST (15-37) IU/L ALT (14-63) IU/L Alkaline Phosphatase (46-116) U/L B-Natriuretic Peptide 21 (<100) PG/ML Total Protein (6.4-8.2) g/dL Albumin (3.4-5.0) g/dL Globulin (2.0-3.5) g/dL Albumin/Globulin Ratio (1.3-2.8) 02/16/18 Range/Units 05:45 WBC (4.0-11.0) K/uL RBC (4.50-5.90) M/uL Hgb (13.0-17.0) g/dL Hct (38.0-50.0) % MCV (80.0-98.0) fL MCH (27.0-32.0) pg MCHC (31.0-37.0) g/dL RDW Std Deviation (28.0-62.0) fl RDW Coeff of Katerine (11.0-15.0) % Plt Count (150-400) K/uL MPV (7.40-12.00) fL Neut % (Auto) (48.0-80.0) % Lymph % (Auto) (16.0-40.0) % Labette % (Auto) (0.0-15.0) % Eos % (Auto) (0.0-7.0) % Baso % (Auto) (0.0-1.5) % Neut # (Auto) (1.4-5.7) K/uL Lymph # (Auto) (0.6-2.4) K/uL Labette # (Auto) (0.0-0.8) K/uL Eos # (Auto) (0.0-0.7) K/uL Baso # (Auto) (0.0-0.1) K/uL Add Manual Diff Neutrophils % (Manual) (48.0-80.0) % Band Neutrophils % % Lymphocytes % (Manual) (16.0-40.0) % Monocytes % (Manual) (0.0-15.0) % Nucleated RBC % /100WBC Absolute Seg Neuts (1.4-5.7) Band Neutrophils # Lymphocytes # (Manual) (0.6-2.4) Monocytes # (Manual) (0.0-0.8) Nucleated RBCs # K/uL D-Dimer, Quantitative (0.0-0.52) mg/LFEU ABG pH (7.35-7.45) ABG pCO2 (35-45) mmHG ABG pO2 (75-100) mmHG ABG HCO3 (22-26) mEq/L ABG Total CO2 ABG Base Excess (-2.0-2.0) Sodium 139 (136-148) mmol/L Potassium 3.8 (3.5-5.1) mmol/L Chloride 106 (98-107) mmol/L Carbon Dioxide 25.3 (21.0-32.0) mmol/L BUN 15 (7.0-18.0) mg/dL Creatinine 1.3 (0.8-1.3) mg/dL Est Cr Clr Drug Dosing 85.79 mL/min Estimated GFR (MDRD) > 60.0 ml/min Glucose 107 H (74-106) mg/dL Calcium 8.4 L (8.5-10.1) mg/dL Total Bilirubin 0.4 (0.2-1.0) mg/dL AST 27 (15-37) IU/L ALT 110 H (14-63) IU/L Alkaline Phosphatase 46 (46-116) U/L B-Natriuretic Peptide (<100) PG/ML Total Protein 6.7 (6.4-8.2) g/dL Albumin 2.7 L (3.4-5.0) g/dL Globulin 4.0 H (2.0-3.5) g/dL Albumin/Globulin Ratio 0.7 L (1.3-2.8) Bobby Results Last 24 Hours: Microbiology 02/15/18 23:45 Clostridium difficile Toxin A & B - Final Stool / Feces Negative for C.Diff Toxin/AG 02/15/18 23:45 Campylobacter Antigen Assay - Final Stool / Feces NEGATIVE CAMPYLOBACTER AG 02/15/18 12:30 Influenza Type A Antigen Screen - Final Nasopharyngeal Swab NEGATIVE INFLUENZA A VIRUS AG Influenza Type B Antigen Screen - Final NEGATIVE INFLUENZA B VIRUS AG Med Orders - Current: Current Medications Acetaminophen (Tylenol) 650 mg PO Q4H PRN PRN Reason: Pain (mild 1-3) Albuterol (Proventil Neb Soln) 2.5 mg NEB Q2H PRN PRN Reason: Shortness Of Breath/wheezing Albuterol/Ipratropium (Duoneb 3.0-0.5 Mg/3 Ml) 3 ml NEB Q4HRRT PRN PRN Reason: Shortness Of Breath/wheezing Last Admin: 02/15/18 18:53 Dose: 3 ml Azithromycin (Zithromax) 500 mg PO Q24H GENO Ceftriaxone Sodium/Dextrose 1 (gm/ Premix) 50 mls @ 100 mls/hr IV Q24H GENO Sodium Chloride (Normal Saline) 1,000 mls @ 125 mls/hr IV ASDIRECTED GENO Last Admin: 02/16/18 00:06 Dose: 125 mls/hr Ondansetron HCl (Zofran) 4 mg IVPUSH Q4H PRN PRN Reason: Nausea Sodium Chloride (Saline Flush) 10 ml FLUSH ASDIRECTED PRN PRN Reason: Keep Vein Open Sodium Chloride (Saline Flush) 2.5 ml FLUSH ASDIRECTED PRN PRN Reason: Keep Vein Open Discontinued Medications Albuterol/Ipratropium (Duoneb 3.0-0.5 Mg/3 Ml) 3 ml NEB ONETIME ONE Stop: 02/15/18 12:10 Last Admin: 02/15/18 12:18 Dose: 3 ml Sodium Chloride (Normal Saline) 1,000 mls @ 999 mls/hr IV STAT ONE Stop: 02/15/18 13:09 Last Admin: 02/15/18 12:23 Dose: 999 mls/hr Ceftriaxone Sodium 1,000 mg/ (Sodium Chloride) 50 mls @ 200 mls/hr IV ONETIME ONE Stop: 02/15/18 14:13 Last Admin: 02/15/18 14:34 Dose: 100 mls/hr Azithromycin 500 mg/ Sodium (Chloride) 250 mls @ 250 mls/hr IV ONETIME ONE Stop: 02/15/18 14:58 Last Admin: 02/15/18 15:47 Dose: Not Given Ceftriaxone Sodium/Dextrose (Rocephin In Dextrose,Iso-Osm 1 Gm/50 Ml) Confirm Administered Dose 50 mls @ as directed .ROUTE .STK-MED ONE Stop: 02/15/18 14:25 Last Admin: 02/15/18 14:34 Dose: Not Given Azithromycin 500 mg/ Sodium (Chloride) 250 mls @ 250 mls/hr IV ONETIME ONE Stop: 02/15/18 15:59 Last Admin: 02/15/18 15:30 Dose: 250 mls/hr - Exam Quality Assessment: Supplemental Oxygen (intermittently needs, sats low 90s on RA. ) General: Alert, Oriented Neck: Supple Lungs: Crackles (bilateral bases.). No: Normal Respiratory Effort (dyspneic with speech and exertion.) Cardiovascular: Regular Rate, Regular Rhythm GI/Abdominal Exam: Normal Bowel Sounds, Soft, Non-Tender, No Organomegaly, No Distention, No Abnormal Bruit, No Mass, Pelvis Stable Extremities: Normal Inspection, Normal Range of Motion, Non-Tender, No Pedal Edema, Normal Capillary Refill Neurological: No New Focal Deficit Psy/Mental Status: Alert, Normal Affect, Normal Mood - Problem List & Annotations (1) Hypoxemia SNOMED Code(s): 497009549 Code(s): R09.02 - HYPOXEMIA Status: Acute Current Visit: Yes (2) Pneumonia SNOMED Code(s): 520334769 Code(s): J18.9 - PNEUMONIA, UNSPECIFIED ORGANISM Status: Acute Current Visit: Yes Qualifiers: Pneumonia type: due to unspecified organism Laterality: bilateral Lung location: lower lobe of lung Qualified Code(s): J18.1 - Lobar pneumonia, unspecified organism (3) Dehydration SNOMED Code(s): 68351902 Code(s): E86.0 - DEHYDRATION Status: Acute Current Visit: Yes (4) RHIANNA (acute kidney injury) SNOMED Code(s): 06086133 Code(s): N17.9 - ACUTE KIDNEY FAILURE, UNSPECIFIED Status: Acute Current Visit: Yes (5) Diarrhea SNOMED Code(s): 60479437 Code(s): R19.7 - DIARRHEA, UNSPECIFIED Status: Acute Current Visit: Yes Qualifiers: Diarrhea type: unspecified type Qualified Code(s): R19.7 - Diarrhea, unspecified - Problem List Review Problem List Initiated/Reviewed/Updated: Yes - My Orders Last 24 Hours: My Active Orders 02/15/18 14:35 Intake and Output [RC] Q12H Oxygen Therapy [RC] PRN Up ad Tosha [RC] ASDIRECTED VTE/DVT Education [RC] PER UNIT ROUTINE Vital Signs [RC] Q4H Acetaminophen [Tylenol] 650 mg PO Q4H PRN Albuterol [Proventil Neb Soln] 2.5 mg NEB Q2H PRN Albuterol/Ipratropium [DuoNeb 3.0-0.5 MG/3 ML] 3 ml NEB Q4HRRT PRN Ondansetron [Zofran] 4 mg IVPUSH Q4H PRN Sequential Compression Device [OM.PC] Per Unit Routine Resuscitation Status Routine 02/15/18 14:37 RT Aerosol Therapy [RC] ASDIRECTED 02/15/18 14:45 Sodium Chloride 0.9% [Normal Saline] 1,000 ml IV ASDIRECTED 02/15/18 23:45 CDIFF TOX A+B [OP] Routine CULTURE STOOL + CAMPY+SHIGATOX [RM] Routine 02/15/18 Dinner Regular Diet [DIET] 02/16/18 00:15 CULTURE SPUTUM + SMEAR [RM] Stat 02/16/18 09:00 Azithromycin [Zithromax] 500 mg PO Q24H 02/16/18 14:45 cefTRIAXone [Rocephin in Dextrose,Iso-Osm 1 GM/50 ML] 1 gm Premix Bag 1 bag IV Q24H - Plan Plan:: This 32 year old male admitted with community acquired pneumonia and hypoxemia 1. CAP: Slight improvement. Hypoxemia noted on ABG. Continue with Rocephin and Azithromycin. BC pending. Will obtain sputum culture as well. Dyspnea with speech continues as well as with exertion. Leukocytosis slight improvement to 15 ,000 today. Afebrile overnight. D dimer slightly elevated on admission, but Well 's score is 0, giving him a low probability of PE. Will hold off on CT angio for now. Continue to monitor. 2 RHIANNA: Improved, Will stop IVFs. may be elevated slightly secondary to muscle mass. 3. Diarrhea: No diarrhea since admission. VTE prophylaxis: Ambulation and SCDs Dispo: 1-2 days pending improvement.
[2018-02-16] MEDS: Azithromycin 250 MG Tab PO SCH (09:50)
[2018-02-16] MEDS ORDERED: cefTRIAXone 1 GM in Premix Bag 1 BAG IV SCH (14:45)
[2018-02-17 05:46] LABS: CHLORIDE,CL 103 mmol/L (98-107); SODIUM,NA 136 mmol/L (136-148)
[2018-02-17 08:43] VITALS: BP 102/30
[2018-02-17] MEDS: Azithromycin 250 MG Tab PO SCH (09:07)
--- NOTE | 2018-02-17 09:44 | PCM.DCSUM1 ---
Discharge Summary - Hospital Course Brief History: This 32 year old male with no pmh presented to the ED today with worsening dyspnea and fever and chills. He reports he initially was sick with a cold and had some ear pain, saw Dr Del Valle a week ago and was placed on Augmentin and a Medrol dose pack. He improved slightly, but the shortness of breath progressively worsened to the point he was extremely short of breath just taking the garbage out. He reports having hot flashes and chills, temp measured at 100 F at home nothing higher. He has been coughing up green, brown and yellow phlegm. He has had a very poor appetite and drinking very little compared to his normal water intake. No chest pain or palpitations. No abdominal pain or urinary symptoms. He reports some diarrhea before starting Augmentin even, 5-6 times daily. No black or bloody BMs. No joint pain. No headache or blurred vision, no more body aches, he had them last week and no joint or neck pain. In the ED leukocytosis noted at 16,890, hgb 17.2, D dimer elevated slightly at 0.64, ABG, pH 7.470 PCO2 29, PO2 63. BUN 18, Cr 1.5 AST 47 , and ALT 148. CXR revealed bilateral L greater than R infiltrates. Influenza negative. He was treated with Rocephin, Azithromycin, Duonebs and 1 L NS bolus. VS stable, 94% on RA but noted dyspnea. PCP, Dr Del Valle. - Discharge Data Discharge Date: 02/17/18 Discharge Disposition: Home, Self-Care 01 Condition: Good - Discharge Diagnosis/Problem(s) (1) Hypoxemia SNOMED Code(s): 523509074 ICD Code: R09.02 - HYPOXEMIA Status: Acute (2) Pneumonia SNOMED Code(s): 324486254 ICD Code: J18.9 - PNEUMONIA, UNSPECIFIED ORGANISM Status: Acute Qualifiers: Pneumonia type: due to unspecified organism Laterality: bilateral Lung location: lower lobe of lung Qualified Code(s): J18.1 - Lobar pneumonia, unspecified organism (3) Dehydration SNOMED Code(s): 15228075 ICD Code: E86.0 - DEHYDRATION Status: Acute (4) HRIANNA (acute kidney injury) SNOMED Code(s): 49131930 ICD Code: N17.9 - ACUTE KIDNEY FAILURE, UNSPECIFIED Status: Acute (5) Diarrhea SNOMED Code(s): 91993814 ICD Code: R19.7 - DIARRHEA, UNSPECIFIED Status: Acute Qualifiers: Diarrhea type: unspecified type Qualified Code(s): R19.7 - Diarrhea, unspecified - Patient Instructions Diet: Regular Diet as Tolerated Activity: As Tolerated, No Strenuous Activities, Rest and Relax Today Showering/Bathing: May Shower Notify Provider of: Fever, Increased Pain, Swelling and Redness, Drainage, Nausea and/or Vomiting - Discharge Plan Prescriptions/Med Rec: Azithromycin 500 mg PO DAILY #5 tablet Home Medications: Home Meds Acetaminophen [Tylenol] 650 mg PO Q4H PRN tablet 02/17/18 [Rx] Azithromycin 500 mg PO DAILY #5 tablet 02/17/18 [Rx] Patient Handouts: Dehydration, Adult, [id number], Community-Acquired Pneumonia, Adult, [id number] Referrals: [facility] [Outside] Ly Roe NP [Ordering Only Provider] - 02/22/18 9:15 am - Discharge Summary/Plan Comment DC Time >30 min.: No Discharge Summary/Plan Comment: Discharge Diagnoses: CAP Miguel Angel was admitted and treated for CAP with Azithromycin and Rocephin. Leukocytosis noted at nearly 17,000 on admission and steadily improved to 10, 390 today. he has remained off oxygen and is sating mid 90s on RA. He is feeling much better today and is eager for discharge today. He has been afebrile. On admission D Dimer was slightly elevated, but Well's critiera was 0. No CT angio performed, as hypoxia and dyspnea likely secondary to bilateral lower lobe pneumonia. BC returned negative. Today he is still slightly SOB but this is improving. He was encouraged to rest and relax this weekend, working out was highly discouraged due to severity of illness. he verbalized understanding. He is to continue eating good and staying very hydrated with water. He is to have another 5 days of Azithromycin 500 mg daily, total of 7 day course for CAP. He is to return to ED or clinic if concerns should arise. He has follow up with PCP clinic next week. - General Info Date of Service: 02/17/18 Admission Dx/Problem (Free Text: Admission Diagnosis/Problem Admission Diagnosis/Problem Pneumonia Subjective Update: Feeling much better today. No chest pain. SOB continues intermittently, but is showing good improvement. Coughing still, but less productive. No fevers. No pain. Eager for discharge home. Functional Status: Reports: Pain Controlled, Tolerating Diet, Ambulating, Urinating - Review of Systems General: Reports: Malaise. Denies: Fever HEENT: Reports: No Symptoms. Denies: Headaches, Sore Throat, Visual Changes Pulmonary: Reports: Shortness of Breath (intermittently, but steadily improving. ), Cough, Sputum. Denies: Wheezing Cardiovascular: Reports: No Symptoms. Denies: Chest Pain Gastrointestinal: Reports: No Symptoms. Denies: Abdominal Pain, Nausea, Vomiting Genitourinary: Reports: No Symptoms. Denies: Dysuria, Frequency, Burning Musculoskeletal: Reports: No Symptoms. Denies: Neck Pain Neurological: Reports: No Symptoms. Denies: Confusion Psychiatric: Reports: No Symptoms. Denies: Confusion - Patient Data Vitals - Most Recent: Last Vital Signs Temp 97.4 F 02/17/18 08:00 Pulse 51 L 02/17/18 08:00 Resp 20 02/17/18 08:00 BP 102/30 L 02/17/18 08:00 Pulse Ox 94 L 02/17/18 08:00 Weight - Most Recent: 105 kg I&O - Last 24 hours: Intake & Output 02/16/18 02/17/18 02/17/18 22:59 06:59 14:59 Intake Total 1550 1640 Output Total 1775 2020 Balance -225 -380 Lab Results - Last 24 hrs: Laboratory Results - last 24 hr 02/17/18 02/17/18 Range/Units 05:05 05:05 WBC 10.39 (4.0-11.0) K/uL RBC 5.17 (4.50-5.90) M/uL Hgb 16.0 (13.0-17.0) g/dL Hct 46.8 (38.0-50.0) % MCV 90.5 (80.0-98.0) fL MCH 30.9 (27.0-32.0) pg MCHC 34.2 (31.0-37.0) g/dL RDW Std Deviation 48.5 (28.0-62.0) fl RDW Coeff of Katerine 15 (11.0-15.0) % Plt Count 365 (150-400) K/uL MPV 10.70 (7.40-12.00) fL Add Manual Diff YES Neutrophils % (Manual) 50 (48.0-80.0) % Band Neutrophils % 2 % Lymphocytes % (Manual) 37 (16.0-40.0) % Monocytes % (Manual) 8 (0.0-15.0) % Eosinophils % (Manual) 1 (0.0-7.0) % Basophils % (Manual) 2 H (0.0-1.5) % Nucleated RBC % 0.4 /100WBC Absolute Seg Neuts 5.2 (1.4-5.7) Band Neutrophils # 0.2 Lymphocytes # (Manual) 3.8 H (0.6-2.4) Monocytes # (Manual) 0.8 (0.0-0.8) Eosinophils # (Manual) 0.1 (0.0-0.7) Basophils # (Manual) 0.2 H (0.0-0.1) Nucleated RBCs # 0 K/uL Sodium 136 (136-148) mmol/L Potassium 4.5 (3.5-5.1) mmol/L Chloride 103 (98-107) mmol/L Carbon Dioxide 25.8 (21.0-32.0) mmol/L BUN 18 (7.0-18.0) mg/dL Creatinine 1.2 (0.8-1.3) mg/dL Est Cr Clr Drug Dosing 92.94 mL/min Estimated GFR (MDRD) > 60.0 ml/min Glucose 86 (74-106) mg/dL Calcium 8.8 (8.5-10.1) mg/dL [place]LE Results - Last 24 hrs: Microbiology 02/15/18 23:45 Campylobacter Antigen Assay - Final Stool / Feces NEGATIVE CAMPYLOBACTER AG - Final NEGATIVE FOR SHIGA TOXIN 1 - Final NEGATIVE FOR SHIGA TOXIN 2 02/15/18 14:18 Aerobic Blood Culture - Preliminary Blood - Venous - Lab Draw NO GROWTH AFTER 1 DAY Anaerobic Blood Culture - Preliminary NO GROWTH AFTER 1 DAY 02/15/18 14:10 Aerobic Blood Culture - Preliminary Blood - Venous NO GROWTH AFTER 1 DAY Anaerobic Blood Culture - Preliminary NO GROWTH AFTER 1 DAY 02/16/18 00:15 Gram Stain - Preliminary Sputum - Expectorated 02/15/18 23:45 Clostridium difficile Toxin A & B - Final Stool / Feces Negative for C.Diff Toxin/AG Med Orders - Current: Current Medications Acetaminophen (Tylenol) 650 mg PO Q4H PRN PRN Reason: Pain (mild 1-3) Albuterol (Proventil Neb Soln) 2.5 mg NEB Q2H PRN PRN Reason: Shortness Of Breath/wheezing Albuterol/Ipratropium (Duoneb 3.0-0.5 Mg/3 Ml) 3 ml NEB Q4HRRT PRN PRN Reason: Shortness Of Breath/wheezing Last Admin: 02/15/18 18:53 Dose: 3 ml Azithromycin (Zithromax) 500 mg PO Q24H [facility] Last Admin: 02/17/18 09:07 Dose: 500 mg Ceftriaxone Sodium/Dextrose 1 (gm/ Premix) 50 mls @ 100 mls/hr IV Q24H [facility] Last Admin: 02/16/18 14:25 Dose: 100 mls/hr Ondansetron HCl (Zofran) 4 mg IVPUSH Q4H PRN PRN Reason: Nausea Sodium Chloride (Saline Flush) 10 ml FLUSH ASDIRECTED PRN PRN Reason: Keep Vein Open Sodium Chloride (Saline Flush) 2.5 ml FLUSH ASDIRECTED PRN PRN Reason: Keep Vein Open Discontinued Medications Albuterol/Ipratropium (Duoneb 3.0-0.5 Mg/3 Ml) 3 ml NEB ONETIME ONE Stop: 02/15/18 12:10 Last Admin: 02/15/18 12:18 Dose: 3 ml Sodium Chloride (Normal Saline) 1,000 mls @ 999 mls/hr IV STAT ONE Stop: 02/15/18 13:09 Last Admin: 02/15/18 12:23 Dose: 999 mls/hr Ceftriaxone Sodium 1,000 mg/ (Sodium Chloride) 50 mls @ 200 mls/hr IV ONETIME ONE Stop: 02/15/18 14:13 Last Admin: 02/15/18 14:34 Dose: 100 mls/hr Azithromycin 500 mg/ Sodium (Chloride) 250 mls @ 250 mls/hr IV ONETIME ONE Stop: 02/15/18 14:58 Last Admin: 02/15/18 15:47 Dose: Not Given Ceftriaxone Sodium/Dextrose (Rocephin In Dextrose,Iso-Osm 1 Gm/50 Ml) Confirm Administered Dose 50 mls @ as directed .ROUTE .STK-MED ONE Stop: 02/15/18 14:25 Last Admin: 02/15/18 14:34 Dose: Not Given Sodium Chloride (Normal Saline) 1,000 mls @ 125 mls/hr IV ASDIRECTED GENO Last Admin: 02/16/18 00:06 Dose: 125 mls/hr Azithromycin 500 mg/ Sodium (Chloride) 250 mls @ 250 mls/hr IV ONETIME ONE Stop: 02/15/18 15:59 Last Admin: 02/15/18 15:30 Dose: 250 mls/hr - Exam Quality Assessment: Reports: DVT Prophylaxis. Denies: Supplemental Oxygen General: Reports: Alert, Oriented, Cooperative, No Acute Distress Neck: Reports: Supple Lungs: Reports: Clear to Auscultation, Normal Respiratory Effort Cardiovascular: Reports: Regular Rate, Regular Rhythm GI/Abdominal Exam: Normal Bowel Sounds, Soft, Non-Tender, No Organomegaly, No Distention, No Abnormal Bruit, No Mass, Pelvis Stable Extremities: Normal Inspection, Normal Range of Motion, Non-Tender, No Pedal Edema, Normal Capillary Refill Neurological: Reports: No New Focal Deficit Psy/Mental Status: Reports: Alert, Normal Affect, Normal Mood
== END 2018-02-17 10:30 | disposition home or self-care (01) ==
LOC: MW.ED 11:29 → MW.MS 14:22
PROVIDERS: ADMIT Internal Medicine; ATTEND Internal Medicine
DX: J18.1 Lobar pneumonia, unspecified organism (principal); R09.02 Hypoxemia; E86.0 Dehydration; N17.9 Acute kidney failure, unspecified; R19.7 Diarrhea, unspecified; Z87.891 Personal history of nicotine dependence
CPT/HCPCS: 36415; 36600; 71046; 80048; 80053; 82803; 83880; 85025; 85379; 87040; 87046; 87070; 87205; 87324; 87804; 87899; 93005; 94640; 96361; 96365; 96375; 99285; A9270; G0378; J0456; J0696; J7040; J7050; 96374; 99283

== ENCOUNTER 2021-09-25 07:14 | Emergency (ER) | payer BC ==
--- NOTE | 2021-09-25 07:31 | EDM.PDOC ---
ED HPI GENERAL MEDICAL PROBLEM - General Stated Complaint: TROUBLE BREATHING Time Seen by Provider: 09/25/21 07:29 - History of Present Illness INITIAL COMMENTS - FREE TEXT/NARRATIVE: History of present illness: [] Symptoms started 21 September. He had gradual insidious onset and gradual progression of pleuritic type chest pain under the left pectoralis major and over the last day or 2 radiating to his back and having pain between his shoulder blades. All the pains are in his left side and over the last 24 hours has become a sharp stabbing pain when he tries to take a deep breath. It is associated with coughing up phlegm. The cough began 21 September. Starting on 22 September he is developed gradually increasing fatigue while trying to work. He has no appetite. He has chills but no documented fever. He has been coughing up dark-colored opaque sputum for 4 days. Over the last 24 hours it has been bloody. He also has some diarrhea 4 times in the last 24 hours. His appetite is gone. His energy is gone. He had a mild headache 3 and 2 days ago which is better now. He is not vaccinated for Covid. The patient is a non-smoker. He has no history of lung disease or heart disease. He is not vaccinated for COVID-19. This patient was seen and evaluated during the 2019 SARS-CoV-2 novel coronavirus pandemic period. Community viral transmission is ongoing at time of this encounter and the emergency department is operating under pandemic response procedures. Review of systems: As per history of present illness and below otherwise all systems reviewed and negative. Past medical history: As per history of present illness and as reviewed below otherwise noncontributory. Surgical history: As per history of present illness and as reviewed below otherwise noncontributory. Social history: No reported history of drug or alcohol abuse. Family history: As per history of present illness and as reviewed below otherwise noncontributory. 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 GI - abdomen soft without distension or organomegaly - normal bowel sounds - no guard or rebound Musculoskeletal minimal tenderness on the left pectoralis major in the anterior chest wall no gross deformity of long bones or joints - no tenderness, swelling or edema Neurologic - Alert and oriented times four - CN II-XII grossly intact - motor sensory and coordination symmetrically normal Psychiatric - appropriate mood and affect with normal thought content Hematologic - No petechiae or purpura - mucosa appropriate color and sclera not pale - normal nail bed color and refill Integument - no rash or evidence of trauma - normal turgor Diagnostics: [] Therapeutics: [] Impression: [] Plan: [] Definitive disposition and diagnosis as appropriate pending reevaluation and review of above. chest pain Pain Score (Numeric/FACES): 8 - Related Data Allergies Allergy/AdvReac Type Severity Reaction Status Date / Time No Known Allergies Allergy Verified 09/25/21 07:34 Home Meds: Home Meds Azithromycin 250 mg PO DAILY #6 tablet 09/25/21 [Rx] methylPREDNISolone [Medrol Dose Pack] 4 mg PO DAILY #21 tab 09/25/21 [Rx] Past Medical History - Past Health History Medical/Surgical History: Denies Medical/Surgical History HEENT History: Reports: None Cardiovascular History: Reports: None. Denies: CAD, High Cholesterol, Hypertension, [place] Respiratory History: Reports: None. Denies: Asthma, COPD, Sleep Apnea Gastrointestinal History: Reports: None. Denies: GERD, GI Bleed Genitourinary History: Reports: None. Denies: Acute Renal Failure, Chronic Renal Insuffiency Musculoskeletal History: Reports: None. Denies: Fracture Neurological History: Reports: None. Denies: CVA, Migraines, TIA Psychiatric History: Reports: None Endocrine/Metabolic History: Reports: None. Denies: Diabetes, Type II, Hypothyroidism Hematologic History: Reports: None Immunologic History: Reports: None Oncologic (Cancer) History: Reports: None Dermatologic History: Reports: None - Infectious Disease History Infectious Disease History: Reports: Chicken Pox - Past Surgical History Head Surgeries/Procedures: Reports: None GI Surgical History: Reports: Other (See Below) Social & Family History - Family History Family Medical History: No Pertinent Family History - Caffeine Use Caffeine Use: Reports: Coffee Caffeine Use Comment: 1/day - Living Situation & Occupation Living situation: Reports: , with Family 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 ED EXAM, GENERAL - Physical Exam Exam: See Below Free Text/Narrative:: My physical exam is in the HPI #1 Interpretation EKG Interpretation Comments: EKG performed 09/25/2021 at 7:24 AM shows sinus rhythm borderline T abnormalities with PT and ST elevation consistent with early repole rate 89 IL 175 axis 78 compared to 02/15/2018 no change impression normal for this patient Course - Vital Signs Last Recorded V/S: Last Vital Signs Temp 36.5 C 09/25/21 07:15 Pulse 82 09/25/21 08:20 Resp 18 09/25/21 07:15 BP 126/55 L 09/25/21 08:20 Pulse Ox 96 09/25/21 08:20 - Orders/Labs/Meds Labs: Laboratory Tests 09/25/21 09/25/21 Range/Units 07:20 07:20 WBC 15.28 H (4.0-11.0) K/uL RBC 4.84 (4.50-5.90) M/uL Hgb 15.5 (13.0-17.0) g/dL Hct 45.0 (38.0-50.0) % MCV 93.0 (80.0-98.0) fL MCH 32.0 (27.0-32.0) pg MCHC 34.4 (31.0-37.0) g/dL RDW Std Deviation 43.8 (28.0-62.0) fl RDW Coeff of Katerine 13 (11.0-15.0) % Plt Count 213 (150-400) K/uL MPV 11.10 (7.40-12.00) fL Add Manual Diff YES Neutrophils % (Manual) 65 (48.0-80.0) % Band Neutrophils % 10 % Lymphocytes % (Manual) 22 (16.0-40.0) % Monocytes % (Manual) 3 (0.0-15.0) % Absolute Seg Neuts 9.9 H (1.4-5.7) Band Neutrophils # 1.5 Lymphocytes # (Manual) 3.4 H (0.6-2.4) Monocytes # (Manual) 0.5 (0.0-0.8) Sodium 132 L (136-148) mmol/L Potassium 3.7 (3.5-5.1) mmol/L Chloride 93 L (98-107) mmol/L Carbon Dioxide 29.8 (21.0-32.0) mmol/L BUN 18 (7.0-18.0) mg/dL Creatinine 1.5 H (0.8-1.3) mg/dL Est Cr Clr Drug Dosing 71.65 mL/min Estimated GFR (MDRD) 53.6 ml/min Glucose 112 H (74-106) mg/dL Calcium 8.6 (8.5-10.1) mg/dL Total Bilirubin 0.5 (0.2-1.0) mg/dL AST 55 H (15-37) IU/L ALT 70 H (14-63) IU/L Alkaline Phosphatase 55 (46-116) U/L Troponin I < 0.050 (0.000-0.056) ng/mL Total Protein 8.4 H (6.4-8.2) g/dL Albumin 3.3 L (3.4-5.0) g/dL Globulin 5.1 H (2.6-4.0) g/dL Albumin/Globulin Ratio 0.7 L (0.9-1.6) Meds: Medications Discontinued Medications Generic Name Dose Route Start Last Admin Trade Name Freq PRN Reason Stop Dose Admin Ketorolac Tromethamine 15 mg 09/25/21 09:18 Ketorolac 30 Mg/Ml Sdv IVPUSH 09/25/21 09:19 ONETIME ONE - Re-Assessments/Exams Free Text/Narrative Re-Assessment/Exam: 09/25/21 09:20 The patient has pleuritic chest pain. It radiates to his back. He has infiltrate in the left midlung. This is consistent with a past history of bacterial pneumonia. He will quarantine because of the possibility that is Covid but he did not want to be tested. Plan ketorolac here, steroid Dosepak for pleurisy, azithromycin treatment and follow-up. Departure - Departure Time of Disposition: 09:30 Disposition: Home, Self-Care 01 Condition: Good Clinical Impression: Pleurisy Pneumonia Qualifiers: Pneumonia type: due to unspecified organism Laterality: bilateral Lung location: lower lobe of lung Qualified Code(s): J18.1 - Lobar pneumonia, unspecified organism - Discharge Information Prescriptions: Azithromycin 250 mg PO DAILY #6 tablet methylPREDNISolone [Medrol Dose Pack] 4 mg PO DAILY #21 tab Instructions: Pleurisy, [id number], Community-Acquired Pneumonia, Adult, [id number] Referrals: PCP,None [Primary Care Provider] - Additional Instructions: You should quarantine for at least 10 days after the onset of your symptoms on 21 September because we did not do a Covid test. When you are taking the steroid Dosepak if you get indigestion he is antiacids and consider starting pantoprazole or omeprazole which are the best medicines for gastritis and are [id number]. [facility] - [facility] [address] [place] [address] [place] [address] The following information is given to patients seen in the emergency department who are being discharged to home. This information is to outline your options for follow-up care. We provide all patients seen in our emergency department with a follow-up referral. The need for follow-up, as well as the timing and circumstances, are variable depending upon the specifics of your emergency department visit. If you don't have a primary care physician on staff, we will provide you with a referral. We always advise you to contact your personal physician following an emergency department visit to inform them of the circumstance of the visit and for follow-up with them and/or the need for any referrals to a consulting specialist. The emergency department will also refer you to a specialist when appropriate. This referral assures that you have the opportunity for follow-up care with a specialist. All of these measure are taken in an effort to provide you with opti mal care, which includes your follow-up. Under all circumstances we always encourage you to contact your private physician who remains a resource for coordinating your care. When calling for follow-up care, please make the office aware that this follow-up is from your recent emergency room visit. If for any reason you are refused follow-up, please contact the [facility] Emergency Department at and asked to speak to the emergency department charge nurse. Sepsis Event Note (ED) - Focused Exam Vital Signs: Vital Signs Temp Pulse Resp BP Pulse Ox 09/25/21 08:20 82 126/55 L 96 09/25/21 07:15 36.5 C 95 18 149/50 H 100
[2021-09-25 08:01] LABS: BLOOD UREA NITROGEN,BUN 18 mg/dL (7.0-18.0); CARBON DIOXIDE,CO2 29.8 mmol/L (21.0-32.0); CHLORIDE,CL 93 mmol/L (98-107); GLUCOSE RANDOM 112 mg/dL (74-106); POTASSIUM,K 3.7 mmol/L (3.5-5.1); SODIUM,NA 132 mmol/L (136-148)
--- NOTE | 2021-09-25 09:09 | CR ---
INDICATION: Chest pain. TECHNIQUE: Chest 1 view. COMPARISON: Chest radiograph 02/15/2018. FINDINGS: Opacity in the left mid lung suspicious for pneumonia. Resolution of previously seen bibasilar infiltrates. No pleural effusion or pneumothorax. Heart size within normal limits for portable technique. Normal pulmonary vascularity. The bones are unremarkable. IMPRESSION: Opacity in the left mid lung suspicious for pneumonia. Dictated by Rut Navarro MD @ 09/25/2021 9:07:42 AM (Electronically Signed)
[2021-09-25] MEDS ORDERED: Ketorolac 30 MG/ML SDV IVPUSH ONE (09:18)
[2021-09-25] MEDS ORDERED: Sodium Chloride 0.9% 1,000 ML IV ONE (09:29)
[2021-09-25] MEDS ORDERED: Acetaminophen/oxyCODONE 325-10 MG Tab PO ONE (10:16)
[2021-09-25 10:55] VITALS: BP 137/60; PULSE 87
== END 2021-09-25 10:58 | disposition home or self-care (01) ==
LOC: MW.ED 07:14
DX: J18.1 Lobar pneumonia, unspecified organism (principal); R09.1 Pleurisy
CPT/HCPCS: 36415; 71045; 80053; 84484; 85025; 85379; 96374; 99284; A9270; J1885; J7030